=== PATIENT | male | born 1970 | race Caucasian/White ===

== ENCOUNTER 2016-05-08 13:10 | Observation (INO) | payer OTHER ==
[~2016-05-08] VITALS: Ht 188 cm; Wt 146.3 kg
[~2016-05-08 13:10] MED LIST: ALLERGY EYE DRO10 ML BOTH EYES; AZELASTINE HCL6 ML BOTH EYES; AZITHROMYCIN500 M1 PO; CEFTIN500 MG PO; DICLOFENAC SODI75 MG PO; FLONASE16 G1 BOTH NARES; VOLTAREN75 MG PO; ZITHROMAX500 MG PO; ZYRTEC10 M2 PO
[2016-05-08 14:06] LABS: HEMATOCRIT 45.9 % (38.0-50.0); MCH 29.2 PG (29.0-34.0); MEAN PLAT.VOLUME 9.9 uM^3 (9.0-12.4); PLATELET COUNT 249 K/uL (156-360); RBC DIS.WIDTH-CV 12.4 % (11.8-14.6); RBC DIS.WIDTH-SD 38.7 % (39-53); RED BLOOD COUNT 5.34 M/uL (4.00-5.50); WHITE BLOOD COUNT 8.1 K/uL (4.1-10.2)
[2016-05-08 14:19] LABS: CHLORIDE 104 mEq/L (99-109); SODIUM 137 mEq/L (136-147)
[2016-05-08 14:21] LABS: GLUCOSE 96 mg/dL (70-99)
[2016-05-08 14:22] LABS: ANION GAP 8 MEQ/L (2-14)
[2016-05-08 14:25] LABS: GFR ESTIMATE (CALCULATED) > 59 mL/min/
[2016-05-08 14:26] LABS: D-DIMER ELISA 1.12 mg/L FEU (< 0.57); UREA NITROGEN (BUN) 8 mg/dL (9-23)
[2016-05-08 14:29] LABS: TROP-I INTERPRETATION NEGATIVE; TROPONIN-I 0.02 ng/mL (0.0-0.30)
[2016-05-08] MEDS ORDERED: LISINOPRIL10 MG PO (17:13)
[2016-05-08 19:30] VITALS: BP 118/60
[2016-05-08 20:24] LABS: TROP-I INTERPRETATION NEGATIVE; TROPONIN-I 0.03 ng/mL (0.0-0.30)
[2016-05-08 23:25] VITALS: BP 100/55
[2016-05-09 02:20] LABS: TROP-I INTERPRETATION NEGATIVE; TROPONIN-I 0.02 ng/mL (0.0-0.30)
[2016-05-09 04:02] VITALS: BP 96/55
[2016-05-09 07:34] LABS: MCH 29.1 PG (29.0-34.0); MCHC 33.5 G/DL (30.0-36.0); MEAN PLAT.VOLUME 10.1 uM^3 (9.0-12.4); PLATELET COUNT 236 K/uL (156-360); RBC DIS.WIDTH-CV 12.6 % (11.8-14.6); RBC DIS.WIDTH-SD 39.9 % (39-53); RED BLOOD COUNT 5.29 M/uL (4.00-5.50); WHITE BLOOD COUNT 8.8 K/uL (4.1-10.2)
[2016-05-09 07:43] VITALS: BP 105/69
[2016-05-09 07:59] LABS: ALKALINE PHOSPHATASE 68 IU/L (3-129); ANION GAP 9 MEQ/L (2-14); CHLORIDE 102 MEQ/L (99-109); GFR ESTIMATE (CALCULATED) > 59 mL/min/; GLUCOSE 124 mg/dL (70-99); POTASSIUM 4.2 MEQ/L (3.7-5.4); SAMPLE HEMOLYSIS CHECK 0; SAMPLE ICTERIC CHECK 0; SAMPLE LIPEMIA CHECK 0; SODIUM 137 MEQ/L (136-147); TOTAL BILIRUBIN 0.4 MG/DL (0.0-1.0); UREA NITROGEN (BUN) 17 mg/dL (9-23)
[2016-05-09 15:14] VITALS: BP 120/72
[2016-05-09 19:22] VITALS: BP 101/58
[2016-05-10 00:04] VITALS: BP 104/62
[2016-05-10 04:43] VITALS: BP 105/61
[2016-05-10 07:14] LABS: BASOPHIL COUNT 0.1 K/uL (0-0.1); EOSINOPHIL (%) 2.2 % (0-5); EOSINOPHIL COUNT 0.2 K/uL (0-0.3); HEMATOCRIT 46.5 % (38.0-50.0); IMMATURE GRANULOCYTE (%) 0.2 % (0.0-0.7); LYMPHOCYTE COUNT 1.9 K/uL (1.0-2.8); MCH 28.9 PG (29.0-34.0); MCHC 33.3 G/DL (30.0-36.0); MCV 86.8 FL (86-99); MONOCYTE (%) 7.5 % (3-12); MONOCYTE COUNT 0.7 K/uL (0-0.8); NEUTROPHIL (%) 68.1 % (45-76); PLATELET COUNT 228 K/uL (156-360); RBC DIS.WIDTH-CV 12.7 % (11.8-14.6); RED BLOOD COUNT 5.36 M/uL (4.00-5.50); WHITE BLOOD COUNT 8.8 K/uL (4.1-10.2)
[2016-05-10 08:02] VITALS: BP 105/55
[2016-05-10 12:33] VITALS: BP 128/74
[2016-05-10] MEDS ORDERED: CARVEDILOL3.125 MG PO (16:42)
[2016-05-10] MEDS ORDERED: LO-DOSE ASPIRIN81 M2 PO (16:42)
[2016-05-10 17:08] VITALS: BP 116/65
== END 2016-05-10 18:53 | disposition home or self-care (01) ==
LOC: EME 13:10 → 4EAST 17:12 → EDOF 17:12 → 4EAST 19:23
PROVIDERS: Emergency Medicine; Hospitalist; Internal Medicine
DX: R07.9 Chest pain, unspecified (principal); I42.9 Cardiomyopathy, unspecified; R91.1 Solitary pulmonary nodule; D68.9 Coagulation defect, unspecified; R06.09 Other forms of dyspnea; I10 Essential (primary) hypertension; R94.39 Abnormal result of other cardiovascular function study; E66.01 Morbid (severe) obesity due to excess calories; Z68.41 Body mass index [BMI] 40.0-44.9, adult; E78.5 Hyperlipidemia, unspecified; Z82.49 Family history of ischemic heart disease and other diseases of the circulatory system; Z83.49 Family history of other endocrine, nutritional and metabolic diseases
CPT/HCPCS: 71020; 71275; 78452; 80048; 80053; 83735; 83880; 84443; 84484; 85025; 85027; 85379; 93005; 93017; 93306; 93970; 99281; 99285; A9500; C1769; C1887; G0378; J1644; J2250; J3010; J7050

== ENCOUNTER 2016-09-18 11:56 | Day surgery (SDC) | payer OTHER ==
[~2016-09-18] VITALS: Ht 188 cm; Wt 147.4 kg
[~2016-09-18 11:56] MED LIST changes: +CARVEDILOL3.125 MG PO; +COREG12.5 M1 PO; +LISINOPRIL10 MG PO; +LO-DOSE ASPIRIN81 M2 PO; +PATANOL OP100 DROP/5 BOTH EYES
== END 2016-09-18 15:33 | disposition home or self-care (01) ==
LOC: CATH 11:56
DX: I42.0 Dilated cardiomyopathy (principal); I10 Essential (primary) hypertension; E78.5 Hyperlipidemia, unspecified; Z79.82 Long term (current) use of aspirin; E66.01 Morbid (severe) obesity due to excess calories; Z68.41 Body mass index [BMI] 40.0-44.9, adult
CPT/HCPCS: 71010; 93005; C1722; C1894; C1895; J0690; J1200; J2250; J3010; S0020

== ENCOUNTER 2016-09-25 23:46 | Inpatient (IN) | payer OTHER ==
[~2016-09-25] VITALS: Ht 185.4 cm; Wt 161.3 kg
[2016-09-26] VITALS (19 sets, daily range): BP systolic 106–160; BP diastolic 67–117
[2016-09-26 00:13] LABS: CREATININE 1.3 mg/dL (0.6-1.3); POTASSIUM 4.1 mEq/L (3.7-5.4)
[2016-09-26 00:18] LABS: HEMATOCRIT 42.5 % (38.0-50.0); MCH 30.3 PG (29.0-34.0); MCHC 34.6 G/DL (30.0-36.0); MCV 87.6 FL (86-99); MEAN PLAT.VOLUME 9.8 uM^3 (9.0-12.4); RBC DIS.WIDTH-CV 12.4 % (11.8-14.6); RBC DIS.WIDTH-SD 39.1 % (39-53); RED BLOOD COUNT 4.85 M/uL (4.00-5.50); WHITE BLOOD COUNT 24.7 K/uL (4.1-10.2)
[2016-09-26 00:30] LABS: CHLORIDE 99 mEq/L (99-109); GLUCOSE 178 mg/dL (70-99); SODIUM 133 mEq/L (136-147)
[2016-09-26 00:31] LABS: PLATELET COUNT 295 K/uL (156-360)
[2016-09-26 00:32] LABS: ANION GAP 12 MEQ/L (2-14)
[2016-09-26 00:34] LABS: GFR ESTIMATE (CALCULATED) 57 mL/min/
[2016-09-26 00:35] LABS: UREA NITROGEN (BUN) 16 mg/dL (9-23)
[2016-09-26 00:40] LABS: TROP-I INTERPRETATION NEGATIVE; TROPONIN-I < 0.01 ng/mL (0.0-0.30)
[2016-09-26 00:52] LABS: TOTAL BILIRUBIN 0.4 mg/dL (0.0-1.0)
[2016-09-26 00:53] LABS: ALKALINE PHOSPHATASE 89 IU/L (3-129)
[2016-09-26 00:56] LABS: DIRECT BILIRUBIN 0.2 mg/dL (0.0-0.3)
[2016-09-26 00:57] LABS: LIPASE 12 U/L (1.0-51.0)
[2016-09-26 02:22] LABS: CREATINE KINASE 34 IU/L (1-294); TOTAL CK 34 IU/L (1-294)
[2016-09-26 02:47] LABS: TROP-I INTERPRETATION NEGATIVE; TROPONIN-I < 0.01 ng/mL (0.0-0.30)
[2016-09-26 04:45] LABS: METH RESISTANT S AUREUS PCR NEGATIVE (NEGATIVE)
[2016-09-26 05:07] LABS: PROBE CHECK PASS; SPECIMEN PROCESSING CONTROL PASS
[2016-09-26 09:32] LABS: ADD MIUA? YES; BILIRUBIN NEGATIVE; BLOOD NEGATIVE; COLOR YELLOW ((YELLOW)); GLUCOSE (STRIP) NEGATIVE; KETONES NEGATIVE; LEUKOCYTES NEGATIVE; NITRITE NEGATIVE; PROTEIN (STRIP) NEGATIVE; SPECIFIC GRAVITY 1.044 (1.000-1.030); UROBILINOGEN 0.2 MG/DL (0.2-1.0)
[2016-09-26 09:59] LABS: BACTERIA NONE SEEN /HPF; CASTS NONE SEEN /LPF; EPITHELIAL CELLS RARE /HPF; MUCUS 1+ /LPF; RED BLOOD CELLS 0-5 /HPF (0-5); UCUL ADDED? NO; WHITE BLOOD CELLS 0-5 /HPF (0-5)
[2016-09-27 04:32] VITALS: BP 123/82
[2016-09-27 07:20] VITALS: BP 120/72
[2016-09-27 09:30] LABS: ANION GAP 9 MEQ/L (2-14); CHLORIDE 102 MEQ/L (99-109); GFR ESTIMATE (CALCULATED) > 59 mL/min/; GLUCOSE 131 mg/dL (70-99); POTASSIUM 3.9 MEQ/L (3.7-5.4); SAMPLE HEMOLYSIS CHECK 0; SAMPLE ICTERIC CHECK 0; SAMPLE LIPEMIA CHECK 0; SODIUM 134 MEQ/L (136-147); UREA NITROGEN (BUN) 21 mg/dL (9-23)
[2016-09-27 09:41] LABS: BASOPHIL COUNT 0.1 K/uL (0-0.1); EOSINOPHIL (%) 4.7 % (0-5); EOSINOPHIL COUNT 0.7 K/uL (0-0.3); HEMATOCRIT 38.7 % (38.0-50.0); IMMATURE GRANULOCYTE (%) 0.8 % (0.0-0.7); IMMATURE GRANULOCYTE COUNT 0.1 K/uL; INSTRUMENT ABS NEUTROPHIL CT 10.4 K/uL; LYMPHOCYTE COUNT 2.7 K/uL (1.0-2.8); MCH 30.2 PG (29.0-34.0); MCHC 33.9 G/DL (30.0-36.0); MCV 89.2 FL (86-99); MONOCYTE (%) 10.2 % (3-12); MONOCYTE COUNT 1.6 K/uL (0-0.8); NEUTROPHIL (%) 66.3 % (45-76); NEUTROPHIL COUNT 10.4 K/uL (1.8-6.4); RBC DIS.WIDTH-CV 12.7 % (11.8-14.6); RBC DIS.WIDTH-SD 41.2 % (39-53); RED BLOOD COUNT 4.34 M/uL (4.00-5.50); WHITE BLOOD COUNT 15.7 K/uL (4.1-10.2)
[2016-09-27 09:47] LABS: MEAN PLAT.VOLUME 9.9 uM^3 (9.0-12.4); PLAT.SUFFICIENCY ADEQUATE
[2016-09-27 09:49] LABS: PLATELET COUNT 200 K/uL (156-360)
[2016-09-27 12:01] VITALS: BP 107/69
[2016-09-27] MEDS ORDERED: ASCORBIC ACID500 M1 PO (14:17)
[2016-09-27] MEDS ORDERED: IBUPROFEN400 MG PO (14:17)
[2016-09-27 16:11] VITALS: BP 109/55
[2016-09-27 20:03] VITALS: BP 131/82
[2016-09-27 23:27] VITALS: BP 119/62
[2016-09-28 04:00] VITALS: BP 125/78
[2016-09-28 06:51] LABS: BASOPHIL COUNT 0.1 K/uL (0-0.1); EOSINOPHIL (%) 7.1 % (0-5); EOSINOPHIL COUNT 0.9 K/uL (0-0.3); HEMATOCRIT 37.4 % (38.0-50.0); IMMATURE GRANULOCYTE (%) 1.4 % (0.0-0.7); IMMATURE GRANULOCYTE COUNT 0.2 K/uL; LYMPHOCYTE COUNT 2.4 K/uL (1.0-2.8); MCH 31.1 PG (29.0-34.0); MCV 88.8 FL (86-99); MEAN PLAT.VOLUME 10.2 uM^3 (9.0-12.4); MONOCYTE (%) 8.6 % (3-12); MONOCYTE COUNT 1.1 K/uL (0-0.8); NEUTROPHIL (%) 63.2 % (45-76); PLATELET COUNT 149 K/uL (156-360); RBC DIS.WIDTH-CV 12.8 % (11.8-14.6); RED BLOOD COUNT 4.21 M/uL (4.00-5.50); WHITE BLOOD COUNT 12.7 K/uL (4.1-10.2)
[2016-09-28 07:08] LABS: ANION GAP 7 MEQ/L (2-14); CHLORIDE 103 MEQ/L (99-109); GFR ESTIMATE (CALCULATED) > 59 mL/min/; GLUCOSE 102 mg/dL (70-99); POTASSIUM 4.2 MEQ/L (3.7-5.4); SAMPLE HEMOLYSIS CHECK 1; SAMPLE ICTERIC CHECK 0; SAMPLE LIPEMIA CHECK 0; SODIUM 134 MEQ/L (136-147); UREA NITROGEN (BUN) 16 mg/dL (9-23)
[2016-09-28 08:50] VITALS: BP 111/57
[2016-09-28 11:47] VITALS: BP 134/72
[2016-09-28 15:43] VITALS: BP 127/71
[2016-09-28 19:47] VITALS: BP 127/69
[2016-09-29 00:34] VITALS: BP 125/71
[2016-09-29 03:49] VITALS: BP 136/83
[2016-09-29 07:57] VITALS: BP 123/80
[2016-09-29 10:46] LABS: TROP-I INTERPRETATION NEGATIVE; TROPONIN-I < 0.01 ng/mL (0.0-0.30)
[2016-09-29 12:12] VITALS: BP 121/83
[2016-09-29 15:00] VITALS: BP 110/71
[2016-09-29 15:32] LABS: TROP-I INTERPRETATION NEGATIVE; TROPONIN-I 0.02 ng/mL (0.0-0.30)
[2016-09-29 18:55] VITALS: BP 110/78
[2016-09-29 23:21] LABS: TROP-I INTERPRETATION NEGATIVE; TROPONIN-I 0.02 ng/mL (0.0-0.30)
[2016-09-30] VITALS (7 sets, daily range): BP systolic 111–127; BP diastolic 60–78
[2016-09-30 06:36] LABS: BASOPHIL COUNT 0.1 K/uL (0-0.1); EOSINOPHIL (%) 1.4 % (0-5); EOSINOPHIL COUNT 0.2 K/uL (0-0.3); HEMATOCRIT 36.8 % (38.0-50.0); IMMATURE GRANULOCYTE (%) 0.6 % (0.0-0.7); IMMATURE GRANULOCYTE COUNT 0.1 K/uL; INSTRUMENT ABS NEUTROPHIL CT 11.1 K/uL; LYMPHOCYTE COUNT 2.4 K/uL (1.0-2.8); MCH 29.9 PG (29.0-34.0); MCHC 33.7 G/DL (30.0-36.0); MCV 88.7 FL (86-99); MEAN PLAT.VOLUME 10.4 uM^3 (9.0-12.4); MONOCYTE (%) 8.2 % (3-12); MONOCYTE COUNT 1.2 K/uL (0-0.8); NEUTROPHIL (%) 73.3 % (45-76); NEUTROPHIL COUNT 11.1 K/uL (1.8-6.4); RBC DIS.WIDTH-CV 12.9 % (11.8-14.6); RBC DIS.WIDTH-SD 41.5 % (39-53); RED BLOOD COUNT 4.15 M/uL (4.00-5.50); WHITE BLOOD COUNT 15.1 K/uL (4.1-10.2)
[2016-09-30 06:47] LABS: ANION GAP 11 MEQ/L (2-14); CHLORIDE 100 MEQ/L (99-109); GFR ESTIMATE (CALCULATED) > 59 mL/min/; GLUCOSE 113 mg/dL (70-99); POTASSIUM 4.6 MEQ/L (3.7-5.4); SAMPLE HEMOLYSIS CHECK 0; SAMPLE ICTERIC CHECK 0; SAMPLE LIPEMIA CHECK 0; SODIUM 132 MEQ/L (136-147); UREA NITROGEN (BUN) 15 mg/dL (9-23)
[2016-09-30 07:09] LABS: PLATELET COUNT 231 K/uL (156-360)
[2016-10-01 03:10] VITALS: BP 115/70
[2016-10-01 07:22] VITALS: BP 121/60
[2016-10-01 10:14] LABS: GFR ESTIMATE (CALCULATED) > 59 mL/min/
[2016-10-01 10:20] LABS: BASOPHIL COUNT 0.1 K/uL (0-0.1); EOSINOPHIL (%) 1.3 % (0-5); EOSINOPHIL COUNT 0.2 K/uL (0-0.3); HEMATOCRIT 34.9 % (38.0-50.0); IMMATURE GRANULOCYTE (%) 0.6 % (0.0-0.7); IMMATURE GRANULOCYTE COUNT 0.1 K/uL; INSTRUMENT ABS NEUTROPHIL CT 8.7 K/uL; LYMPHOCYTE COUNT 1.9 K/uL (1.0-2.8); MCH 31.2 PG (29.0-34.0); MCHC 34.7 G/DL (30.0-36.0); MCV 89.9 FL (86-99); MEAN PLAT.VOLUME 10.9 uM^3 (9.0-12.4); MONOCYTE COUNT 1.2 K/uL (0-0.8); NEUTROPHIL (%) 71.6 % (45-76); NEUTROPHIL COUNT 8.7 K/uL (1.8-6.4); PLATELET COUNT 222 K/uL (156-360); RBC DIS.WIDTH-CV 13.2 % (11.8-14.6); RBC DIS.WIDTH-SD 42.2 % (39-53); RED BLOOD COUNT 3.88 M/uL (4.00-5.50); WHITE BLOOD COUNT 12.2 K/uL (4.1-10.2)
[2016-10-01 11:18] VITALS: BP 125/61
[2016-10-01 14:34] VITALS: BP 106/67
[2016-10-01 17:18] VITALS: BP 152/82
== END 2016-10-01 18:54 | disposition short-term general hospital (02) | DRG 315 ==
LOC: EME 23:46 → 4EAST 09-26 02:41 → EDOF 09-26 02:41 → ENRESERV 09-26 02:46 → 4WEST 09-26 03:17 → ENRESERV 09-26 20:40 → 4EAST 09-26 21:15
PROVIDERS: Emergency Medicine; Internal Medicine; Internal Medicine Cardiovascular Disease; Internal Medicine Critical Care Medicine; Physician Assistant Medical
DX: I42.0 Dilated cardiomyopathy (principal); T82.6XXA Infection and inflammatory reaction due to cardiac valve prosthesis, initial encounter; I31.3 Pericardial effusion (noninflammatory); I11.0 Hypertensive heart disease with heart failure; R55 Syncope and collapse; I50.9 Heart failure, unspecified; G47.33 Obstructive sleep apnea (adult) (pediatric); E66.9 Obesity, unspecified; K52.9 Noninfective gastroenteritis and colitis, unspecified; E87.2 Acidosis; E87.1 Hypo-osmolality and hyponatremia; R56.9 Unspecified convulsions; K21.9 Gastro-esophageal reflux disease without esophagitis; Z68.42 Body mass index [BMI] 45.0-49.9, adult; Z95.810 Presence of automatic (implantable) cardiac defibrillator; E87.70 Fluid overload, unspecified; I49.3 Ventricular premature depolarization; E86.0 Dehydration; R21 Rash and other nonspecific skin eruption
CPT/HCPCS: 71010; 71275; 74177; 80047; 80048; 80076; 80202; 81003; 82550 91; 82553; 82565; 83605; 83690; 83880; 84443; 84484; 85025; 85027; 87040; 87086; 87493; 87641; 93005; 93306; 93308; 94799; 99281; 99285; J1650; J1940; J2405; J3370; J7030